=== PATIENT | female | born 1990 | race Caucasian/White ===

== ENCOUNTER 2016-08-11 08:13 | Emergency (ER) | payer OTHER ==
--- NOTE | 2016-08-30 15:51 | ER ---
ADMIT: 08/11/2016 RM/LOC: ER [facility] MR#: [id number] [address] [id number] STUART CAMACHO [address] [place] [address] Emergency Room Report SEX: F AGE: 26 : 1990 DATE: 08/11/2016 This 26-year-old female comes to the Emergency Department with complaints of right lower quadrant abdominal pain, right flank pain, and dysuria. It started suddenly, described it as sharp, cramping pain. See T-sheet for remainder of history and physical. CT scan for stone was unremarkable. Appendix was not visualized, however, it was read as no free fluid or inflammatory changes in the right lower quadrant. Urine was significant for 990 wbc's, leukocyte esterase 3+, rbc's 192. Patient is diagnosed with urinary tract infection. Given a prescription for Pyridium and Cipro. Instruction to follow up in 2-3 days if not better. Jose Clayton MD/ frieda JOB #: [id number] CC: Jose Clayton MD, Attending Physician Chance Marrero MD, Family Physician
== END 2016-08-11 10:00 | disposition home or self-care (01) ==
LOC: ER 08:13
DX: N39.0 Urinary tract infection, site not specified (principal); F17.210 Nicotine dependence, cigarettes, uncomplicated